=== PATIENT | female | born 1930 | race Caucasian/White ===

== ENCOUNTER 2018-05-30 19:09 | Inpatient (IN) | payer MEDICARE, MEDICAID ==
[~2018-05-30] VITALS: Ht 147.3 cm; Wt 49.0 kg
[~2018-05-30 19:09] MED LIST: CARV6.2512 PO; DIGO0.12 PO; FURO-93 PO; LISI-167 PO; SPIR25TA5 PO; WARF1TAB PO
--- NOTE | 2018-05-30 19:39 | NUR ---
PT MONGOLIAN SPEAKING ONLY RECIEVING INFORMATION FROM GRANDDAUGHTER. PT WAS SEEN A WEEK AGO AT [facility] FOR PAIN IN HIPS AND KNEES. PAIN HAS CONTINUED TO GET WORSE MAKING PT IMMOBILE. PT IS USUALLY AMBULATORY WITH WALKER AT HOME. TODAY STARTED COMPLAINING OF SHORTNESS OF BREATH. ALSO STATES PT HAS NOT HAD BOWEL MOVEMENT SINCE SUNDAY
[2018-05-30 19:51] LABS: BASOPHILS # (AUTO) 0.02 x10^3/uL (0-0.1); BASOPHILS % (AUTO) 0 % (0-1); EOSINOPHILS # (AUTO) 0.03 x10^3/uL (0-0.4); EOSINOPHILS % (AUTO) 1 % (1-7); LYMPHOCYTES # (AUTO) 0.55 x10^3/uL (1-3.4); LYMPHOCYTES % (AUTO) 12 % (22-44); MD NO; MEAN CORPUSCULAR HEMOGLOBIN 34.8 pg (27.0-34.8); MEAN CORPUSCULAR HGB CONC 34.4 g/dL (32.4-35.8); MEAN PLATELET VOLUME 9.6 fL (7.4-10.4); MONOCYTES # (AUTO) 0.37 x10^3/uL (0.2-0.8); MONOCYTES % (AUTO) 8 % (2-9); NEUTROPHILS # (AUTO) 3.58 x10^3/uL (1.8-6.8); NEUTROPHILS % (AUTO) 79 % (42-75); PLATELET COUNT 143 x10^3/uL (130-400); RED BLOOD COUNT 3.87 x10^6/uL (3.82-5.3); RED CELL DISTRIBUTION WIDTH 14.5 % (9.6-15.2)
[2018-05-30] MEDS ORDERED: METF500T17 PO (19:54)
[2018-05-30] MEDS ORDERED: HYDR-3237 PO (19:54)
[2018-05-30] MEDS ORDERED: ASPI-515 PO (19:54)
[2018-05-30 20:01] LABS: ALANINE AMINOTRANSFERASE 34 U/L (12-78); ALBUMIN 3.7 g/dL (3.4-5.0); ANION GAP 4 mmol/L (5-15); CALCIUM 8.8 mg/dL (8.5-10.1); CHLORIDE 105 mmol/L (98-107); CREATININE 0.44 mg/dL (0.55-1.02)
[2018-05-30 20:03] LABS: ALKALINE PHOSPHATASE 101 U/L (45-117); BILIRUBIN,TOTAL 0.8 mg/dL (0.2-1.0); TOTAL PROTEIN 7.4 g/dL (6.4-8.2)
[2018-05-30 20:06] LABS: RAPID INFLUENZA A Negative (Negative); RAPID INFLUENZA B Negative (Negative)
[2018-05-30 20:15] LABS: MICROSCOPIC AUTO
[2018-05-30 20:17] LABS: CULTURE INDICATED? YES
[2018-05-30] MEDS ORDERED: ENOXAPARIN 60 MG/0.6 ML SQ SCH (21:00)
[2018-05-30] MEDS ORDERED: KETOROLAC 30 MG/1 ML IVPush ONE (21:00)
--- NOTE | 2018-05-30 21:17 | NUR ---
PT RESTING WITH FAMILY AT BEDSIDE
[2018-05-30 21:26] LABS: TROPONIN I < 0.015 ng/mL (0.000-0.045)
[2018-05-30] MEDS ORDERED: CEFTRIAXONE PMX 1GM/50ML 50 ML IV ONE (21:30)
[2018-05-30] MEDS ORDERED: CEFTRIAXONE PMX 1GM/50ML 50 ML IV SCH (21:30)
[2018-05-30] MEDS ORDERED: CEFTRIAXONE PMX 1GM/50ML 50 ML ONE (21:39)
[2018-05-30] MEDS ORDERED: KETOROLAC 30 MG/1 ML ONE (21:39)
[2018-05-30] MEDS ORDERED: ENOXAPARIN 60 MG/0.6 ML ONE (21:39)
[2018-05-30] MEDS ORDERED: ONDANSETRON ODT 4 MG PO PRN (22:00)
[2018-05-30] MEDS: SODIUM CHLORIDE FLUSH 10ML SYR IVF SCH (22:00)
--- NOTE | 2018-05-30 22:04 | NUR ---
PT RESTING WITH FAMILY AT BEDSIDE. UPDATE OF POC GIVEN. MEDICATIONS GIVEN
[2018-05-30 22:14] LABS: FOLATE LEVEL > 20.0 ng/mL (3.1-17.5)
--- NOTE | 2018-05-30 22:14 | NUR ---
PT TO XRAY
[2018-05-30 22:15] LABS: INTERNATIONAL NORMALIZED RATIO 2.71 (0.93-1.1); PROTHROMBIN TIME 27.4 Seconds (9.6-11.5)
[2018-05-30] MEDS: BISACODYL 10 MG SUPP PR SCH (22:30)
[2018-05-30] MEDS: CARVEDILOL 6.25 MG TABLET PO SCH (22:30)
[2018-05-30 22:33] LABS: FREE T4 (FREE THYROXINE) 0.92 ng/dL (0.76-1.46)
--- NOTE | 2018-05-30 23:03 | NUR ---
PT RESTING WITH FAMILY AT BEDSIDE. VSS.
--- NOTE | 2018-05-30 23:38 | NUR ---
REPORT CALLED TO LANA MELENDEZ. ALL QUESTIONS ANSWERED. TRANSFERRED WITH FAMILY AT BEDSIDE.
[2018-05-31 00:10] VITALS: BP 151/74
[2018-05-31] MEDS: ACETAMINOPHEN 325 MG TABLET PO PRN ×2 (00:40→12:27)
[2018-05-31 04:00] VITALS: BP 122/68
[2018-05-31 04:51] LABS: MEAN CORPUSCULAR HEMOGLOBIN 34.9 pg (27.0-34.8); MEAN CORPUSCULAR HGB CONC 34.7 g/dL (32.4-35.8); MEAN CORPUSCULAR VOLUME 100.5 fL (80-100); MEAN PLATELET VOLUME 10.1 fL (7.4-10.4); PLATELET COUNT 128 x10^3/uL (130-400); RED BLOOD COUNT 3.55 x10^6/uL (3.82-5.3); RED CELL DISTRIBUTION WIDTH 14.6 % (9.6-15.2)
[2018-05-31 05:00] LABS: ALBUMIN 3.4 g/dL (3.4-5.0); ANION GAP 4 mmol/L (5-15); CALCIUM 8.3 mg/dL (8.5-10.1); CHLORIDE 104 mmol/L (98-107)
[2018-05-31 05:07] LABS: ALANINE AMINOTRANSFERASE 27 U/L (12-78); ALKALINE PHOSPHATASE 84 U/L (45-117); BILIRUBIN,TOTAL 0.8 mg/dL (0.2-1.0); CREATININE 0.46 mg/dL (0.55-1.02); TOTAL PROTEIN 6.6 g/dL (6.4-8.2); TROPONIN I < 0.015 ng/mL (0.000-0.045)
[2018-05-31 07:10] VITALS: BP 126/74
[2018-05-31] MEDS: BISACODYL 10 MG SUPP PR SCH (08:49)
[2018-05-31] MEDS: POLYETHYLENE GLYCOL 17 GM PACKET PO SCH (08:51)
[2018-05-31] MEDS: DIGOXIN 0.125 MG TABLET PO SCH (08:52)
[2018-05-31] MEDS: SENNA/DOCUSATE TABLET PO SCH (08:52)
[2018-05-31] MEDS: LISINOPRIL 5 MG TABLET PO SCH (08:52)
[2018-05-31] MEDS: metFORMIN 500 MG TABLET PO SCH (08:52)
[2018-05-31] MEDS: CARVEDILOL 6.25 MG TABLET PO SCH ×2 (08:52→22:02)
[2018-05-31] MEDS: SODIUM CHLORIDE FLUSH 10ML SYR IVF SCH ×2 (08:53→22:02)
[2018-05-31 10:53] LABS: MD SCAN
[2018-05-31 10:54] LABS: BASOPHILS # (AUTO) 0.01 x10^3/uL (0-0.1); BASOPHILS % (AUTO) 0 % (0-1); EOSINOPHILS # (AUTO) 0.01 x10^3/uL (0-0.4); EOSINOPHILS % (AUTO) 0 % (1-7); LYMPHOCYTES # (AUTO) 0.67 x10^3/uL (1-3.4); LYMPHOCYTES % (AUTO) 23 % (22-44); MONOCYTES # (AUTO) 0.37 x10^3/uL (0.2-0.8); MONOCYTES % (AUTO) 13 % (2-9); NEUTROPHILS # (AUTO) 1.83 x10^3/uL (1.8-6.8); NEUTROPHILS % (AUTO) 63 % (42-75)
[2018-05-31 11:50] LABS: TROPONIN I < 0.015 ng/mL (0.000-0.045)
[2018-05-31 14:05] VITALS: BP 97/57
[2018-05-31 14:44] LABS: INTERNATIONAL NORMALIZED RATIO 1.93 (0.93-1.1); PROTHROMBIN TIME 19.8 Seconds (9.6-11.5)
[2018-05-31] MEDS ORDERED: WARFARIN 2 MG TABLET PO-COUM ONE (18:00)
[2018-05-31] MEDS ORDERED: WARFARIN 3 MG TABLET PO-COUM SCH (18:00)
[2018-05-31 20:24] VITALS: BP 131/65
[2018-05-31] MEDS ORDERED: CEFTRIAXONE PMX 1GM/50ML 50 ML IV SCH (21:30)
[2018-05-31] MEDS: CEFTRIAXONE PMX 1GM/50ML 50 ML IV SCH (22:02)
[2018-06-01 01:59] VITALS: BP 121/69
[2018-06-01 05:31] LABS: INTERNATIONAL NORMALIZED RATIO 2.01 (0.93-1.1); PROTHROMBIN TIME 20.5 Seconds (9.6-11.5)
[2018-06-01 08:00] VITALS: BP 138/72
[2018-06-01] MEDS: BISACODYL 10 MG SUPP PR SCH (09:00)
[2018-06-01 09:13] LABS: BASOPHILS # (AUTO) 0.01 x10^3/uL (0-0.1); BASOPHILS % (AUTO) 0 % (0-1); EOSINOPHILS # (AUTO) 0.02 x10^3/uL (0-0.4); EOSINOPHILS % (AUTO) 1 % (1-7); LYMPHOCYTES # (AUTO) 1.01 x10^3/uL (1-3.4); LYMPHOCYTES % (AUTO) 28 % (22-44); MD NO; MEAN CORPUSCULAR HEMOGLOBIN 33.7 pg (27.0-34.8); MEAN CORPUSCULAR HGB CONC 33.8 g/dL (32.4-35.8); MEAN CORPUSCULAR VOLUME 99.7 fL (80-100); MEAN PLATELET VOLUME 10.3 fL (7.4-10.4); MONOCYTES # (AUTO) 0.58 x10^3/uL (0.2-0.8); MONOCYTES % (AUTO) 16 % (2-9); NEUTROPHILS # (AUTO) 2.03 x10^3/uL (1.8-6.8); NEUTROPHILS % (AUTO) 56 % (42-75); PLATELET COUNT 134 x10^3/uL (130-400); RED BLOOD COUNT 3.58 x10^6/uL (3.82-5.3); RED CELL DISTRIBUTION WIDTH 14.5 % (9.6-15.2)
[2018-06-01 09:26] LABS: ANION GAP 4 mmol/L (5-15); CALCIUM 8.5 mg/dL (8.5-10.1); CHLORIDE 107 mmol/L (98-107); CREATININE 0.38 mg/dL (0.55-1.02)
[2018-06-01] MEDS ORDERED: GABAPENTIN 100 MG CAPSULE PO ONE (10:00)
[2018-06-01] MEDS: SODIUM CHLORIDE FLUSH 10ML SYR IVF SCH ×2 (10:11→20:55)
[2018-06-01] MEDS: LISINOPRIL 5 MG TABLET PO SCH (10:13)
[2018-06-01] MEDS: DIGOXIN 0.125 MG TABLET PO SCH (10:14)
[2018-06-01] MEDS: CARVEDILOL 6.25 MG TABLET PO SCH ×2 (10:14→20:54)
[2018-06-01] MEDS: metFORMIN 500 MG TABLET PO SCH (10:14)
[2018-06-01] MEDS: SENNA/DOCUSATE TABLET PO SCH (10:14)
[2018-06-01] MEDS: POLYETHYLENE GLYCOL 17 GM PACKET PO SCH (10:15)
[2018-06-01 14:30] VITALS: BP 125/73
[2018-06-01] MEDS ORDERED: WARFARIN 3 MG TABLET PO-COUM ONE (18:00)
[2018-06-01 18:22] VITALS: BP 127/71
[2018-06-01] MEDS: GABAPENTIN 100 MG CAPSULE PO SCH (20:54)
[2018-06-01] MEDS: CEFTRIAXONE PMX 1GM/50ML 50 ML IV SCH (20:55)
[2018-06-02 00:31] VITALS: BP 134/64
[2018-06-02 05:26] LABS: INTERNATIONAL NORMALIZED RATIO 3.37 (0.93-1.1); PROTHROMBIN TIME 33.8 Seconds (9.6-11.5)
[2018-06-02 07:00] VITALS: BP 135/63
[2018-06-02] MEDS ORDERED: DIGOXIN 0.125 MG TABLET ONE (08:05)
[2018-06-02] MEDS: SODIUM CHLORIDE FLUSH 10ML SYR IVF SCH (08:16)
[2018-06-02] MEDS: GABAPENTIN 100 MG CAPSULE PO SCH (08:17)
[2018-06-02] MEDS: CARVEDILOL 6.25 MG TABLET PO SCH (08:17)
[2018-06-02] MEDS: metFORMIN 500 MG TABLET PO SCH (08:17)
[2018-06-02] MEDS: LISINOPRIL 5 MG TABLET PO SCH (08:17)
[2018-06-02] MEDS: POLYETHYLENE GLYCOL 17 GM PACKET PO SCH (08:18)
[2018-06-02] MEDS: SENNA/DOCUSATE TABLET PO SCH (08:19)
[2018-06-02] MEDS: BISACODYL 10 MG SUPP PR SCH (08:20)
[2018-06-02] MEDS ORDERED: GABA100C PO (08:38)
[2018-06-02] MEDS ORDERED: CEFD300C37 PO (08:38)
[2018-06-02] MEDS ORDERED: DIGOXIN 0.125 MG TABLET PO SCH (09:00)
== END 2018-06-02 13:35 | disposition home health service (06) | DRG 308 ==
LOC: ED 21:28 → EDIP 21:30 → 5SO 23:58
PROVIDERS: ADMIT Family Medicine; ATTEND Family Medicine
DX: I48.2 Chronic atrial fibrillation (principal); R53.2 Functional quadriplegia; N39.0 Urinary tract infection, site not specified; D68.69 Other thrombophilia; I50.42 Chronic combined systolic (congestive) and diastolic (congestive) heart failure; I11.0 Hypertensive heart disease with heart failure; D75.89 Other specified diseases of blood and blood-forming organs; E11.40 Type 2 diabetes mellitus with diabetic neuropathy, unspecified; H91.90 Unspecified hearing loss, unspecified ear; I08.1 Rheumatic disorders of both mitral and tricuspid valves; K59.00 Constipation, unspecified; M81.0 Age-related osteoporosis without current pathological fracture; Z66 Do not resuscitate; Z79.01 Long term (current) use of anticoagulants; Z86.73 Personal history of transient ischemic attack (TIA), and cerebral infarction without residual deficits; Z90.710 Acquired absence of both cervix and uterus; Z23 Encounter for immunization
CPT/HCPCS: 36415; 71045; 72190; 74018; 76700; 80048; 80053; 80162; 81001; 82607; 82746; 83735; 84439; 84443; 84481; 84484; 85025; 85610; 87077; 87086; 87186; 87400; 90656; 93005; 93306; 96372; 96374; 96375; G0378; J0696; J1650; J1885

== ENCOUNTER → 2018-06-18 | Outpatient (CLI) | payer MEDICARE, MEDICAID ==
[~2018-06-18] MED LIST changes: +ASPI-515 PO; +CEFD300C37 PO; +GABA100C PO; +HYDR-3237 PO; +METF500T17 PO
== END | disposition home or self-care (01) ==
LOC: WOUND 12:50
PROVIDERS: ATTEND Nurse Practitioner Family
DX: E11.621 Type 2 diabetes mellitus with foot ulcer (principal); L97.521 Non-pressure chronic ulcer of other part of left foot limited to breakdown of skin; E11.40 Type 2 diabetes mellitus with diabetic neuropathy, unspecified; I11.0 Hypertensive heart disease with heart failure; I50.42 Chronic combined systolic (congestive) and diastolic (congestive) heart failure; I48.2 Chronic atrial fibrillation; H91.90 Unspecified hearing loss, unspecified ear; M81.0 Age-related osteoporosis without current pathological fracture; Z90.710 Acquired absence of both cervix and uterus; Z79.01 Long term (current) use of anticoagulants; Z86.73 Personal history of transient ischemic attack (TIA), and cerebral infarction without residual deficits
CPT/HCPCS: 97597; G0463

== ENCOUNTER → 2018-06-25 | Outpatient (CLI) | payer MEDICARE, MEDICAID | END | disposition home or self-care (01) | LOC: WOUND 13:48 | PROVIDERS: ATTEND Nurse Practitioner Family | DX: E11.621 Type 2 diabetes mellitus with foot ulcer (principal); L97.521 Non-pressure chronic ulcer of other part of left foot limited to breakdown of skin; E11.40 Type 2 diabetes mellitus with diabetic neuropathy, unspecified; I11.0 Hypertensive heart disease with heart failure; I50.42 Chronic combined systolic (congestive) and diastolic (congestive) heart failure; I48.2 Chronic atrial fibrillation; H91.90 Unspecified hearing loss, unspecified ear; M81.0 Age-related osteoporosis without current pathological fracture; Z90.710 Acquired absence of both cervix and uterus; Z79.01 Long term (current) use of anticoagulants; Z86.73 Personal history of transient ischemic attack (TIA), and cerebral infarction without residual deficits | CPT/HCPCS: G0463 ==